=== PATIENT | male | born 1985 | race American Indian/Alaskan Native ===

== ENCOUNTER 2018-01-27 11:37 | Inpatient (IN) | payer MEDICAID ==
[2018-01-27] MEDS ORDERED: Sodium Chloride 0.9% 1,000 ML IV ONE (12:19)
[2018-01-27 12:59] LABS: BASO % 0.8 % (0.0-2.0); EOS # 0.1 K/uL (0.0-0.7); HEMOGLOBIN 15.1 g/dL (12.0-18.0); LYMPH # 0.9 K/uL (1.0-4.3); LYMPH % 31.1 % (20.0-40.0); MEAN CORPUSCULAR HEMOGLOBIN 30.3 pg (27.0-31.0); MEAN CORPUSCULAR HGB CONC 34.8 g/dL (33.0-37.0); MEAN PLATELET VOLUME 10.6 fL (7.2-11.7); MONO # 0.3 K/uL (0.0-0.8); MONO % 10.4 % (0.0-10.0); NEUT # 1.6 K/uL (1.8-7.0); NEUT % 55.7 % (50.0-75.0); NRBC % 0.2 % (0.0-2.0); RBC 4.97 Mil/uL (4.40-5.90); RED CELL DISTRIBUTION WIDTH 12.5 % (11.5-14.5); WHITE BLOOD COUNT 2.8 K/uL (4.8-10.8)
[2018-01-27 13:04] LABS: URINE BILIRUBIN NEGATIVE (NEGATIVE); URINE BLOOD NEGATIVE (NEGATIVE); URINE CLARITY Clear (Clear); URINE COLOR Yellow (YELLOW); URINE GLUCOSE (UA) NORMAL (Normal); URINE LEUKOCYTE ESTERASE NEG Leu/uL (Negative); URINE PROTEIN NEGATIVE (NEGATIVE); URINE UROBILINOGEN NORMAL mg/dL (0.2-1.0)
[2018-01-27 13:21] LABS: ALB/GLOB RATIO 1.5 (1.0-2.1); ALBUMIN 4.7 g/dL (3.5-5.0); ALT/SGPT 34 U/L (21-72); AST/SGOT 38 U/L (17-59); BLOOD UREA NITROGEN 11 mg/dL (9-20); CALCIUM 9.7 mg/dl (8.6-10.4); GFR NON-AFRICAN AMERICAN > 60
--- NOTE | 2018-01-27 14:01 | C.PDOC ---
History Of Present Illness 32 year old male presents to the ED for evaluation of left testicular pain and swelling for approx 3-4 months. Patient states he has been evaluated at [facility] multiple times and given three rounds of different anti biotics without improvement. Last week he was seen there, and he states his most recent bloodwork and ultrasound indicated that he "may have a tumor." Patient has not follow up with urologist yet, states the urologist is away and will return only in March. Patient denies trauma to the area, dys uria/hematuria, penile discharge, fever, abdominal pain. Time Seen by Provider: 01/27/18 12:07 Chief Complaint (Nursing): Male Genitourinary History Per: Patient History/Exam Limitations: no limitations Onset/Duration Of Symptoms: Other (3-4 months ) Current Symptoms Are (Timing): Still Present Severity: Moderate Quality Of Discomfort: "Pain" Associated Symptoms: denies: Fever, Chills, Nausea, Vomiting, Diarrhea, Urinary Symptoms Additional History Per: Patient Past Medical History Reviewed: Historical Data, Nursing Documentation, Vital Signs Vital Signs: Last Vital Signs Temp 98.2 F 01/27/18 12:03 Pulse 61 01/27/18 12:03 Resp 18 01/27/18 12:03 BP 175/105 H 01/27/18 12:03 Pulse Ox 98 01/27/18 12:03 - Medical History PMH: No Chronic Diseases Surgical History: No Surg Hx Family History: States: No Known Family Hx - Social History Hx Alcohol Use: No Hx Substance Use: No - Immunization History Hx Tetanus Toxoid Vaccination: No Hx Influenza Vaccination: No Hx Pneumococcal Vaccination: No Review Of Systems Constitutional: Negative for: Fever, Chills Cardiovascular: Negative for: Chest Pain Respiratory: Negative for: Shortness of Breath Gastrointestinal: Negative for: Nausea, Vomiting, Abdominal Pain, Diarrhea Genitourinary: Positive for: Other (left testicular pain and swelling ). Negative for: Dysuria, Hematuria, Penile Discharge Skin: Negative for: Rash Physical Exam - Physical Exam Appears: Well, Non-toxic, No Acute Distress Skin: Normal Color, Warm, Dry, No Rash Eye(s): bilateral: Normal Inspection Oral Mucosa: Moist Neck: Supple Cardiovascular: Rhythm Regular Respiratory: Normal Breath Sounds, No Rales, No Rhonchi, No Wheezing Gastrointestinal/Abdominal: Normal Exam, Bowel Sounds, Soft, No Tenderness Male Genital: Testicular Tenderness (left), Testicular Swelling (left), Other (significant left testicular swelling and diffuse TTP, no fluctuance or induration) Extremity: Normal ROM Neurological/Psych: Oriented x3 ED Course And Treatment - Laboratory Results Result Diagrams: 01/27/18 12:40 01/27/18 12:40 O2 Sat by Pulse Oximetry: 98 (on RA) Pulse Ox Interpretation: Normal - CT Scan/US testicular US Other Rad Studies (CT/US): Read By Radiologist, Radiology Report Reviewed CT/US Interpretation: Accession No. : [id number]. Patient Name / ID : FER PASCUAL / [id number]. Exam Date : 01/27/2018 12:57:39 ( Approved ). Study Comment : Sex / Age : M / 32Y. Creator : Silvana Downey V. Dictator : Silvana Downey V. Plasterer Maintenance : Bronze Plater : Silvana Downey V. Approver2 : Report Date : 01/27/2018 14:58:34. My Comment : . Date of service: 01/27/2018. HISTORY: LEFT TESTICULAR PAIN AND SWELLING. TECHNIQUE: Realtime sonography through the scrotum with color and doppler flow. COMPARISON: None Available. FINDINGS: RIGHT TESTICLE: Measures 4.1 x 2.7 x 2.7 cm. Normal echotexture and flow. RIGHT EPIDIDYMIS: Epididymal head measures 1.2 x 0.6 x 1.5 cm. Small right epididymal cyst 4 x 3 x 4 mm. Otherwise unremarkable in appearance with normal flow. LEFT TESTICLE: Measures 8.5 x 6.2 x 6.5 cm. Grossly abnormally heterogeneous in echotexture with multiple coalescing heterogeneous slightly hypoechoic intratesticular blending masses. One intratesticular mass solid in appearance measures 4.6 x 4.4 x 4.8 cm. Another mid testicular level mass has some minimal complex cystic foci within it GERD of it is also solid in appearance it measures 2.4 x 4.0 x 2.5 cm. An inferior testicular nearly isoechoic mass solid-appearing measures 2.3 x 3.6 x 3.4 cm. The masses have some increased vascularity associated with them. LEFT EPIDIDYMIS: The left epididymal head and body are not clearly identified.. HYDROCELE: Bilateral hydroceles left slightly larger than right. VARICOCELE: None. OTHER FINDINGS: IMPRESSION: Grossly abnormal appearing left testicle. Multiple intratesticular "masses" neoplastic and/or inflammatory are considerations. Neoplastic masses of the needed diagnosis of exclusion to be considered. Urological consult/follow-up is essential. There is flow to both testes there is also mild internal and mild moderate peripheral vascularity associated with the left intratesticular masses. No grossly contiguous inflamed left epididymis identified. However the left epididymis is not identified. Bilateral hydroceles left greater than right. Comments: Study marked for PA review . Progress Note: Bloodwork, urinalysis, testicular ultrasound ordered and reviewe d. Patient given Toradol IVP and IV NS bolus. Calls placed to Dr. Cedrick Gomes's cellphone at 15:15. Message left for callback. Additional calls placed to cellphone at 15:38 and 16:12. Call placed to Dr. Gomes's service at 15:45. Patient without PMD or private urologist, I am concerned about him being lost to follow up care. Has had symptoms for multiple months without resolution, and physical exam and testicular US are concerning for malignancy. Will admit for possible testicular cancer. 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 Consult for urology entered. Disposition - Disposition Disposition: HOSPITALIZED Disposition Time: 16:57 Condition: STABLE - Clinical Impression Clinical Impression: Testicular mass, Testicular swelling, left - Scribe Statement The provider has reviewed the documentation as recorded by the Scribe (Antonina Cline) Provider Attestation: All medical record entries made by the Scribe were at my direction and personally dictated by me. I have reviewed the chart and agree that the record accurately reflects my personal performance of the history, physical exam, medical decision making, and the department course for this patient. I have also personally directed, reviewed, and agree with the discharge instructions and disposition. Decision To Admit - Pt Status Changed To: Hospital Disposition Of: Inpatient - Admit Certification Admit to Inpatient:: After my assessment, the patient will require hospitalization for at least two midnights. This is because of the severity of symptoms shown, intensity of services needed, and/or the medical risk in this patient being treated as an outpatient. - InPatient: Physician Admission Certification: I certify that this patient requires 2 or more midnights of care for the following reason:: see notes - . Bed Request Type: Regular Admitting Physician: Rebeca Alvarado Patient Diagnosis: Testicular swelling, left, Testicular mass
[2018-01-27 14:03] VITALS: RESP 20
--- NOTE | 2018-01-27 15:02 | US ---
Date of service: 01/27/2018 HISTORY: LEFT TESTICULAR PAIN AND SWELLING TECHNIQUE: Realtime sonography through the scrotum with color and doppler flow. COMPARISON: None Available. FINDINGS: RIGHT TESTICLE: Measures 4.1 x 2.7 x 2.7 cm. Normal echotexture and flow. RIGHT EPIDIDYMIS: Epididymal head measures 1.2 x 0.6 x 1.5 cm. Small right epididymal cyst 4 x 3 x 4 mm. Otherwise unremarkable in appearance with normal flow. LEFT TESTICLE: Measures 8.5 x 6.2 x 6.5 cm. Grossly abnormally heterogeneous in echotexture with multiple coalescing heterogeneous slightly hypoechoic intratesticular blending masses. One intratesticular mass solid in appearance measures 4.6 x 4.4 x 4.8 cm. Another mid testicular level mass has some minimal complex cystic foci within it GERD of it is also solid in appearance it measures 2.4 x 4.0 x 2.5 cm. An inferior testicular nearly isoechoic mass solid-appearing measures 2.3 x 3.6 x 3.4 cm. The masses have some increased vascularity associated with them. LEFT EPIDIDYMIS: The left epididymal head and body are not clearly identified.. HYDROCELE: Bilateral hydroceles left slightly larger than right. VARICOCELE: None. OTHER FINDINGS: IMPRESSION: Grossly abnormal appearing left testicle. Multiple intratesticular "masses" neoplastic and/or inflammatory are considerations. Neoplastic masses of the needed diagnosis of exclusion to be considered. Urological consult/follow-up is essential. There is flow to both testes there is also mild internal and mild moderate peripheral vascularity associated with the left intratesticular masses. No grossly contiguous inflamed left epididymis identified. However the left epididymis is not identified. Bilateral hydroceles left greater than right. Comments: Study marked for PA review .
--- NOTE | 2018-01-28 09:29 | CP.PCM.PN ---
Subjective - Date & Time of Evaluation Date of Evaluation: 01/28/18 Time of Evaluation: 08:00 - Subjective Subjective: PGY3 Medicine progress note for Dr. Alvarado: Patient was seen and examined at bedside this morning. This is a 32 year old male who presented to the ED yesterday for evaluation of left testicular pain and swelling for approx 3-4 months. Patient states he has been evaluated at [facility] multiple times and given three rounds of different antibiotics without improvement. He denies fever/chills, discharge from the scrotum or penis, weight loss. Patient states he had an US done which showed a "tumor." He tried to follow up with urology but was told that the urologist was out of town until March. PMHx - none Meds - none NKDA Surg - denies Famhx - father with HTN and diabetes, hx of cancer in paternal side but unsure which kind Social - smokes about 4cigarettes daily, social alcohol use, denies drug use, not employed Objective - Vital Signs/Intake and Output Vital Signs (last 24 hours): Temp Pulse Resp BP Pulse Ox 97.6 F 60 20 158/94 H 96 01/28/18 07:49 01/28/18 07:49 01/28/18 07:49 01/28/18 07:49 01/28/18 07:49 Intake and Output: 01/28/18 01/28/18 06:59 18:59 Intake Total 600 Balance 600 - Medications Medications: Current Medications Amlodipine Besylate (Norvasc) 10 mg PO DAILY [place] Influenza Virus Vaccine (Fluzone Quad [id number]) 60 mcg IM .ONCE ONE Stop: 01/29/18 10:01 Pneumococcal Polyvalent Vaccine (Pneumovax 23 Vaccine) 0.5 ml IM .ONCE ONE Stop: 01/29/18 10:01 - Labs Labs: 01/27/18 12:40 01/27/18 12:40 - Constitutional Appears: Non-toxic, No Acute Distress - Head Exam Head Exam: ATRAUMATIC, NORMAL INSPECTION - Eye Exam Eye Exam: EOMI, Normal appearance, PERRL Pupil Exam: NORMAL ACCOMODATION - ENT Exam ENT Exam: Mucous Membranes Moist - Respiratory Exam Respiratory Exam: Clear to Ausculation Bilateral, NORMAL BREATHING PATTERN. absent: Accessory Muscle Use, Respiratory Distress - Cardiovascular Exam Cardiovascular Exam: REGULAR RHYTHM, +S1, +S2 - GI/Abdominal Exam GI & Abdominal Exam: Soft, Normal Bowel Sounds. absent: Distended, Firm, Guarding, Tenderness - Exam Exam: Scrotal Swelling, Testicular Tenderness. absent: Uretheral Discharge, Bladder Distension (no enlarged lymph nodes palpated in the groin, no lesions, left side of scrotum swollen, skin with mild edema, no discharge, mildly tender) - Neurological Exam Neurological Exam: Alert, Awake, CN II-XII Intact, Oriented x3 Neuro motor strength exam: Left Upper Extremity: 5, Right Upper Extremity: 5, Left Lower Extremity: 5, Right Lower Extremity: 5 - Psychiatric Exam Psychiatric exam: Normal Affect, Normal Mood - Skin Skin Exam: Intact, Normal Color Assessment and Plan - Assessment and Plan (Free Text) Assessment: Scrotal Mass and edema Dr. Cedrick Gomes, urology, consulted - help appreciated f/u CT ADB/pelvis f/y tumor markers: AFP, Hcg, LDH, Testicular US 01/27: Grossly abnoral left testicle. multiple intratesticular masses" neoplastic and/or inflammatory are considerations. There is flow to both testicles and mild to moderate peripheral vascularity associated with the left intratesticular mass. Left epididmyis is not identified. Bilateral hydroceles left greater than right. Failed outpatient antibiotic therapy: WBC normal, afebrile, no sing of infection Urine culture 01/27 - negative Hypertension could be secondary to pain, patient denies hx of HTN and was not on any medications at home Amlodipine 10mg PO daily Prophylactic Measures SCD, Heart healthy diet GI not indicated Patient is stable for discharge home. He is to follow up with a primary care doctor, or Dr. Alvarado for post hospital care and management of high blood pressure. Patient is to also follow up with Dr. Cedrick Gomes, urology, within one week of discharge. Patient is to take Amlodipine 10mg by mouth once a day for blood pressure control. All instructions explained to the patient and he agrees. Yumiko Martino, DO PGY3 (Case discussed with Dr. Alvarado. All management and order per Dr. Alvarado)
[2018-01-28 10:36] VITALS: BP 158/94; PULSE 60; TEMP 97.6
--- NOTE | 2018-01-28 11:15 | PCM.URO ---
Urology Progress Note - Subjective Abdominal Pain: Yes - Objective Lab Results Last 24 Hours: Laboratory Results - last 24 hr 01/27/18 01/27/18 01/27/18 12:19 12:40 12:40 WBC 2.8 L RBC 4.97 Hgb 15.1 Hct 43.2 MCV 87.0 MCH 30.3 MCHC 34.8 RDW 12.5 Plt Count 136 MPV 10.6 Neut % (Auto) 55.7 Lymph % (Auto) 31.1 [place] % (Auto) 10.4 H Eos % (Auto) 2.0 Baso % (Auto) 0.8 Neut # (Auto) 1.6 L Lymph # (Auto) 0.9 L [place] # (Auto) 0.3 Eos # (Auto) 0.1 Baso # (Auto) 0.0 Sodium 142 Potassium 3.9 Chloride 102 Carbon Dioxide 29 Anion Gap 14 BUN 11 Creatinine 1.0 Est GFR ( Amer) > 60 Est GFR (Non-Af Amer) > 60 Random Glucose 87 Calcium 9.7 Total Bilirubin 1.2 AST 38 ALT 34 Alkaline Phosphatase 55 Total Protein 7.7 Albumin 4.7 Globulin 3.1 Albumin/Globulin Ratio 1.5 Urine Color Yellow Urine Clarity Clear Urine pH 5.0 Ur Specific [place] 1.020 Urine Protein Negative Urine Glucose (UA) Normal Urine Ketones Negative Urine Blood Negative Urine Nitrate Negative Urine Bilirubin Negative Urine Urobilinogen Normal Ur Leukocyte Esterase Neg Urine WBC (Auto) 1 Urine RBC (Auto) < 1 Intake & Output: Intake & Output 01/27/18 01/28/18 01/28/18 18:59 06:59 18:59 Intake Total 600 Balance 600 Weight 185 lb Intake: Oral 600 Other: # Voids Urine, Voided 2 Vital Signs: Vital Signs - 24 hr 01/27/18 01/27/18 01/27/18 12:03 14:02 17:36 Temperature 98.2 F 98.8 F 98.0 F Pulse Rate 61 61 72 Respiratory 18 20 Rate Blood Pressure 175/105 H 164/100 H 176/105 H O2 Sat by Pulse 98 98 100 Oximetry 01/27/18 01/27/18 01/27/18 18:24 19:01 19:40 Temperature 98.3 F Pulse Rate 62 62 Respiratory 20 Rate Blood Pressure 174/105 H 169/106 H O2 Sat by Pulse 100 98 Oximetry 01/27/18 01/28/18 01/28/18 21:20 00:08 07:49 Temperature 98 F 97.6 F Pulse Rate 66 68 60 Respiratory 18 20 Rate Blood Pressure 164/92 H 154/100 H 158/94 H O2 Sat by Pulse 99 96 Oximetry - Plan Ambulation - Out of Bed: Yes (pt can be discharged home and managed as an out pt )
[2018-01-28] MEDS ORDERED: Iodixanol 320 MG/ML 100 ML BOTTLE IV ONE (11:55)
--- NOTE | 2018-01-28 13:31 | CT ---
Date of service: 01/28/2018 PROCEDURE: CT Abdomen and Pelvis with contrast HISTORY: testicular mass/ r/o adenopathy please go all the COMPARISON: None available. TECHNIQUE: Contrast dose: 100 cc Visipaque 320 Radiation dose: Total exam DLP = 465.82 mGy-cm. This CT exam was performed using one or more of the following dose reduction techniques: Automated exposure control, adjustment of the mA and/or kV according to patient size, and/or use of iterative reconstruction technique. FINDINGS: Examination limited by paucity of intra-abdominal and intrapelvic fat. LOWER THORAX: No visible consolidation, pleural effusion, or pneumothorax. LIVER: Indeterminate 10 mm hypodense lesion within the posterior right hepatic lobe (series 3, image 33). GALLBLADDER AND BILE DUCTS: Unremarkable. PANCREAS: Unremarkable. SPLEEN: Unremarkable. ADRENALS: Unremarkable. KIDNEYS AND URETERS: The kidneys enhance symmetrically. No hydronephrosis or obstructing calculus identified. Too small to characterize right renal hypodensity; statistically likely cyst. VASCULATURE: No aortic aneurysm. No atherosclerotic calcification or mural plaque present. BOWEL: Stomach is nondistended. Lack of oral contrast limits evaluation for bowel pathology. Bowel loops appear within normal limits of caliber without evidence of obstruction. APPENDIX: The appendix appears within normal limits of caliber. No secondary signs of acute appendicitis. PERITONEUM: No significant free fluid. No definite free air. LYMPH NODES: Sub cm mesenteric and retroperitoneal lymph nodes, nonspecific. BLADDER: Unremarkable. REPRODUCTIVE: Incidental note is made of abnormal heterogeneous appearance of the left testicle. Please refer to testicular ultrasound performed 01/27/18 for detailed discussion. BONES: No acute osseous abnormality is detected. OTHER FINDINGS: None. IMPRESSION: Indeterminate 10 mm hypodense mass within the posterior right hepatic lobe. Recommend ultrasound and or dedicated liver CT if indicated. Incidental note is made of abnormal heterogeneous appearance of the left testicle. Please refer to testicular ultrasound performed 01/27/18 for detailed discussion of abnormal findings. Additional findings as above.
--- NOTE | 2018-01-29 08:47 | CON ---
DATE: 01/28/2018 UROLOGY CONSULTATION REASON FOR CONSULTATION: I was asked to see the patient for his scrotal discomfort. HISTORY OF PRESENT ILLNESS: A very pleasant 32-year-old gentleman since 10/2017, he has been having some discomfort in his scrotum and he noticed a mass. No history of trauma. On further questioning, he revealed that it is more recent than that, that makes more sense. He has no history of trauma. He has two children, but he does not recall anybody including a 6-month-old, he does not recall any injury. He has no urinary complaints, dysuria, or urgency. He has no constitutional complaints, weight loss, chest pain, shortness of breath, night sweats, etc. He has discomfort in his scrotum. He initially went to the emergency room at [facility]. They recommended that he follow up with urologist who subsequently was not able to see the patient until 03/2018. He then came to the [facility] and was admitted. PAST MEDICAL HISTORY AND SURGICAL HISTORY: As listed on the chart. No history of an NM or CVA, or any disease. SOCIAL HISTORY: He has a girlfriend who has 2 kids. He worked in the [employer] in [place]. REVIEW OF SYSTEMS: No constitutional complaints, weight loss, chest pain, shortness of breath, night sweats, etc. PHYSICAL EXAMINATION: GENERAL: A well-nourished male, in no apparent distress. VITAL SIGNS: Normal. NECK: No obvious adenopathy detected. He has no cervical or axillary lymphadenopathy. LUNGS: Clear. HEART: S1 and S2. ABDOMEN: Overall soft, nontender. GENITALIA: He has a normal male phallus. Left hemiscrotum is large. It is dilated. I am unable to tell that it transilluminates or not after inside his left hemiscrotum. The wall is within normal limits. There is no thick masses to the wall. It is large. The remainder of the contralateral side is within normal limits. RECTAL: Exam is deferred. There are no other appreciable abnormalities throughout the chart. DIAGNOSIS: Scrotal mass. ASSESSMENT AND PLAN: So the differential diagnoses including the possibility for an underlying testicular cancer, malignancy needs to be entertained heavily. The other possibility is a large hydrocele. I explained this in detail to the patient and explained different surgical approaches from our end. We will report this and I need to check the ultrasound report. If there is a solid mass, we will consider outpatient surgical resection. From Urology standpoint, he is stable, he is interested in going home. I explained to him the importance of followup, the importance of ____, but from urology standpoint, he is stable and clear for discharge home. He has provided me his cell number. I spoke to him directly in the room on his cell phone to make sure I am able to reach him. It does not appear that he will get assistance. The plan will be as follows. is as follows. We recommend a CT scan and with some labs. See him in the office including alpha-fetoprotein, etc., and then we will recommend surgical removal, but this cannot be scheduled as an as needed basis. In the event that it is hydrocele, if the patient is very uncomfortable, we will recommend the possibility for . 1. Check the ultrasound report. 2. If possible, more imaging. 3. If possible, more labs in the office. Make further plans. We will follow. Juliocesar Gomes MD
[2018-01-29] MEDS ORDERED: Pneumococcal 23-Valent Vaccine IM ONE (10:00)
[2018-01-29] MEDS ORDERED: Influenza Vaccine 60 MCG/0.5 ML SYR (3 yr & up) IM ONE (10:00)
[2018-02-05 12:26] VITALS: O2SAT 98
== END 2018-01-28 14:40 | disposition home or self-care (01) | DRG 501 ==
LOC: C.ER 11:37 → C.9E 16:57 → C.3T 17:22
PROVIDERS: ADMIT Internal Medicine Pulmonary Disease; ATTEND Internal Medicine Pulmonary Disease
DX: N50.812 Left testicular pain (principal); I10 Essential (primary) hypertension; N43.3 Hydrocele, unspecified

== ENCOUNTER 2018-02-03 12:35 | Day surgery (SDC) | payer MEDICAID ==
[2018-02-03 12:55] VITALS: O2SAT 100
--- NOTE | 2018-02-03 13:07 | C.PDOC ---
History Of Present Illness 32yo male, with history of hypertension, comes to ER for evaluation of left testicular pain and swelling. Patient states the pain and swelling has been present x 3 months and states the pain has been worsening. Patient was evaluated by Dr. Gomes, concern for possible cancer, and was sent to ER for further evaluation and probable procedure. Patient reports he last ate and drank water last night; he has had no PO intake today. PMD: At [facility] Urologist: Dr. Gomes Time Seen by Provider: 02/03/18 13:02 Chief Complaint (Nursing): Medical Clearance History Per: Patient History/Exam Limitations: no limitations Onset/Duration Of Symptoms: Persistent Current Symptoms Are (Timing): Still Present Past Medical History Reviewed: Historical Data, Nursing Documentation, Vital Signs Vital Signs: Last Vital Signs Temp 98.8 F 02/03/18 12:52 Pulse 62 02/03/18 12:52 Resp 18 02/03/18 12:52 BP 131/95 H 02/03/18 12:52 Pulse Ox 100 02/03/18 12:52 - Medical History PMH: HTN Surgical History: No Surg Hx Family History: States: Unknown Family Hx - Social History Hx Alcohol Use: Yes (occasional drinker) Hx Substance Use: No - Immunization History Hx Tetanus Toxoid Vaccination: No Hx Influenza Vaccination: No Hx Pneumococcal Vaccination: No Review Of Systems Except As Marked, All Systems Reviewed And Found Negative. (as per HPI) Genitourinary: Positive for: Other (left testicular pain and swelling) Physical Exam - Physical Exam Appears: Non-toxic, No Acute Distress Skin: Normal Color, Warm, Dry Head: Atraumatic, Normacephalic Eye(s): bilateral: Normal Inspection Neck: Normal ROM, Supple Chest: Symmetrical Cardiovascular: Rhythm Regular Respiratory: Normal Breath Sounds Gastrointestinal/Abdominal: Normal Exam, Soft Male Genital: Other (deferred) Extremity: Normal ROM Neurological/Psych: Oriented x3 ED Course And Treatment O2 Sat by Pulse Oximetry: 100 (RA) Pulse Ox Interpretation: Normal Medical Decision Making Medical Decision Making: Impression: 32yo male with left testicular swelling and pain Plan: * Labs * CXR * IV Fluids [address] Gomes who states patient to be admitted under his service. Disposition - Disposition Forms: [employer] ([place]) - Scribe Statement The provider has reviewed the documentation as recorded by the Scribe Mar Ashley Provider Attestation: All medical record entries made by the Angel were at my direction and personally dictated by me. I have reviewed the chart and agree that the record accurately reflects my personal performance of the history, physical exam, medical decision making, and the department course for this patient. I have also personally directed, reviewed, and agree with the discharge instructions and disposition.
[2018-02-03] MEDS ORDERED: Sodium Chloride 0.9% 1,000 ML IV SCH (13:15)
[2018-02-03 13:43] LABS: BASO % 0.6 % (0.0-2.0); EOS # 0.1 K/uL (0.0-0.7); EOS % 2.3 % (0.0-4.0); HEMOGLOBIN 15.1 g/dL (12.0-18.0); LYMPH # 0.8 K/uL (1.0-4.3); LYMPH % 32.5 % (20.0-40.0); MEAN CELL VOLUME 87.5 fL (80.0-94.0); MEAN CORPUSCULAR HEMOGLOBIN 30.1 pg (27.0-31.0); MEAN CORPUSCULAR HGB CONC 34.4 g/dL (33.0-37.0); MEAN PLATELET VOLUME 10.7 fL (7.2-11.7); MONO # 0.2 K/uL (0.0-0.8); MONO % 9.7 % (0.0-10.0); NEUT # 1.3 K/uL (1.8-7.0); NEUT % 54.9 % (50.0-75.0); NRBC % 0.2 % (0.0-2.0); RBC 5.01 Mil/uL (4.40-5.90); RED CELL DISTRIBUTION WIDTH 12.8 % (11.5-14.5); WHITE BLOOD COUNT 2.5 K/uL (4.8-10.8)
[2018-02-03 13:50] LABS: INR 1.1; PROTHROMBIN TIME 11.6 SECONDS (9.7-12.2)
--- NOTE | 2018-02-03 13:53 | RAD ---
HISTORY: SOB COMPARISON: No prior. TECHNIQUE: Chest PA and lateral FINDINGS: LUNGS: No focal consolidation. Please note that chest x-ray has limited sensitivity for the detection of pulmonary masses. PLEURA: No significant pleural effusion identified. No definite pneumothorax . CARDIOVASCULAR: The cardiomediastinal silhouette appears within normal limits of size. No atherosclerotic calcification present. OSSEOUS STRUCTURES: No acute osseous abnormality identified. VISUALIZED UPPER ABDOMEN: Unremarkable. OTHER FINDINGS: None. IMPRESSION: No focal consolidation identified.
[2018-02-03 14:01] LABS: ALB/GLOB RATIO 1.4 (1.0-2.1); ALT/SGPT 35 U/L (21-72); AST/SGOT 39 U/L (17-59); BLOOD UREA NITROGEN 13 mg/dL (9-20); CALCIUM 9.9 mg/dl (8.6-10.4); GFR NON-AFRICAN AMERICAN > 60
[2018-02-03] MEDS ORDERED: Propofol 10 mg/ml Inj (20 ML) ONE ×2 (17:28→17:57)
[2018-02-03] MEDS ORDERED: Midazolam 2 MG/2 ML VIAL ONE (17:28)
[2018-02-03] MEDS ORDERED: ceFAZolin 1 gm in NS 2 GM/200 ML BAG IVPB ONE (17:34)
[2018-02-03] MEDS: Bupivacaine 0.25% 20 ML INJ IJ ONE ×2 (17:46→18:38)
[2018-02-03] MEDS ORDERED: HYDROmorphone 0.5 mg/0.5 ml ISec IVP PRN ×2 (18:34→19:24)
[2018-02-03] MEDS ORDERED: Bupivacaine 0.25% 20 ML INJ IJ ONE (18:36)
[2018-02-03] MEDS ORDERED: Oxycodone/Acetaminophen 5/325 mg Tab PO PRN (19:08)
[2018-02-03 19:48] VITALS: RESP 12
[2018-02-03 20:59] VITALS: BP 134/85; PULSE 70; TEMP 98.1
--- NOTE | 2018-02-04 04:59 | HP ---
REASON FOR ADMISSION: Treatment of testicular mass. HISTORY OF PRESENT ILLNESS: Very pleasant gentleman who I just met last week, this has been going for a while. He has actually been in another hospital or two. Difficult to assess the exact timing for this but it has been going on for a while that he has a mass in his left testicle. The question is whether it was fluid or mass. When we saw the patient where he had an ultrasound, it showed multiple abnormalities within his testicle. There are also may be a small component of hydrocele. At that time when we met the patient, we ordered tumor markers and a CT scan, and the mass has further delineated. There is no evidence of adenopathy. No retroperitoneal adenopathy appreciated well. The tumor markers are slightly elevated. The LDH is elevated. I think his hCG is elevated, have to check further details. We have discussed options with the patient. My recommendation is for orchiectomy at this point. I did discuss with the patient the right side being normal. The patient has no history of undescended testicle. We discussed sperm banking. We discussed options available including surgery including exploration and frozen section. After discussing various options and recommendation from me, we discussed the patient's options at length with the patient's girlfriend in the office. After meeting the patient initially in the hospital and then having him come to the office immediately, we made immediate arrangement for a left inguinal exploration and a left radical orchiectomy. Past medical and surgical history is, essentially, negative. Otherwise, healthy gentleman. REVIEW OF SYSTEMS: No weight loss, chest pain, shortness of breath, night sweats, or the like. No history of trauma to the testicles. No history of travel. No other suggestions for tuberculosis coming. PHYSICAL EXAMINATION: GENERAL: No apparent distress. VITAL SIGNS: Within normal limits, included in the chart. LUNGS: Clear. HEART: S1 and S2. ABDOMEN: Overall soft. Nontender. No flank tenderness appreciated. He has no cervical adenopathy. No axillary lymphadenopathy. Right side has normal right hemiscrotum and right testicle. Left hemiscrotum is grossly enlarged with testicle noted. I do want to mention the lab values. His HCG is 7.51. His alpha fetoprotein is 12.4. The LDH is noted as I mentioned, 490. I do want to also mention the remainder of the labs, BUN, creatinine, and CBC are all within relatively normal limits. His white count is only 2.8, and a repeat white count today is 2.5 (we need to address this as well). CT scan is noted. No adenopathy. The testicular ultrasound, again we have had a chance to review again. There is what appears to be an intratesticular mass, solid in appearance. The diagnosis is a left intratesticular mass with no obvious metastatic disease. We have discussed the options that he is here for a radical orchiectomy. We are going to do an inguinal exploration and radical orchiectomy. I have discussed the patient's risks and benefits. I have discussed alternatives. I have discussed observations. I discussed blood type . I have discussed many many things. I discussed the risk of nerve damage. I discussed the risk of spread of tumors. I discussed the risk of coming, discussed the risk of hernia formation. After discussing all these options, we are going to proceed. Further plan is as follows. 1. Antibiotic prophylaxis. 2. Inguinal exploration. 3. Orchiectomy, and then for further plans and option, see the operative note. Juliocesar Gomes MD
--- NOTE | 2018-02-04 10:28 | OP ---
PROCEDURE DATE: 02/03/2018 PREOPERATIVE DIAGNOSIS: Left intratesticular mass, suspicious for malignancy. POSTOPERATIVE DIAGNOSIS: Left intratesticular mass, suspicious for malignancy. PROCEDURE: Left inguinal exploration and incision and a left radical orchiectomy. SURGEON: Juliocesar Gomes MD COMPLICATIONS: There were no complications. ESTIMATED BLOOD LOSS: Less than 10 mL. SPECIMEN: Left testicle and the left cord up to as high as we can get through. INDICATIONS FOR THE PROCEDURE: See history and physical for the detail. A very pleasant gentleman who presented a while ago with left intratesticular mass of various reasons. We did meet the patient until last , and he is now here today for the above listed procedure. I met the patient in the hospital. We already did a scrotal ultrasound. See the admission history and physical for further details. We then did a CT scan. We did labs. LDH is noted to be elevated. Other tumor markers, beta HCG, and alpha fetoprotein are noted. We discussed the options. The patient has no obvious adenopathy. He is here now for the above listed procedure. I do want to mention it is a fairly large tumor. With difficulty we were able to without any rupture and without spilling any tumor cells, we were able to eliminate the testicle. DESCRIPTION OF PROCEDURE: After obtaining informed consent, the patient was placed on table. Routine monitors were placed. Time-out was called to confirm the patient and positioning. We gave the patient antibiotic prophylaxis. We made horizontal incision. We marked our incision. We felt the pubic tubercle. We felt the external ring. We made incision to the underlying skin and subcutaneous fascia, trying to avoid the inguinal nerve. We controlled any bleeding in the skin site. At this point, we identified our sternal oblique and incised below layer by layer. Now we identified the cord, and we were able to deliver the cord, and we have made decision that our plan was for an orchiectomy, not for any frozen sections. I discussed various options with the patient. We then proceeded. Therefore, we put a Katelyn around the cord before we started the manipulation just to present tumor cells . We then tried to deliver the testicle through, but it was a fairly large testicle. We dissected slowly, carefully, meticulously until we were able to free up the testicle and deliver it. We had extended our incision a little bit. We were able to deliver and free off the scrotal wall. We now inspected the scrotal wall for any bleeding sites. There is no bleeding, and we have not ruptured the scrotum. The skin is grossly intact. We . At this point, we inspected more closely the testicle and it feels like a solid intratesticular mass. I do not open on the field. We will just keep the Katelyn around if that is possible. We now traced up the cord and tie up into the canals we can get. I do want to mention at this point, I also provided for local anesthetic afterwards. We used a three-clamp technique to divide the testicle and the cord contents. As we are doing it, we are also tying off little smaller vessels. We used the silk that we leave with a long tail, 0 Silk with a long tail so in case, we will need to come out for no dissection for the future. We also used the following. We used #0 and #1 silk and we also used suture ligature to make sure they have a good secure solid nonbleeding stump. We inspected very carefully. It looks terrific. There is no bleeding noted. We irrigated the wound. I now looked back at the scrotal wall. I everted into the field. I inspected very carefully. There is really no bleeding, any little slightest blood vessel we cauterized very carefully. The skin is grossly intact, and there is no bleeding. We irrigated the wound copiously and we begin our closure. We returned to floor of the shelving edges. Gently, carefully it actually comes back very nicely. We used Vicryl, closing layers. We then injected subcutaneously little more marking to the wound. anesthesia. We reapproximated, and we closed the skin with isaac prior to dry sterile dressing. We then put a scrotal support with some fluffy dressing in the scrotum. We will do extra pressure dressing. The patient tolerated the procedure without complications. Juliocesar Gomes MD
--- NOTE | 2018-02-04 11:13 | CARD ---
APPROVED REPORT Date of service: 02/03/2018 EKG Measurement Heart [id number] <Conclusion> Normal sinus rhythm ST elevation, probably due to early repolarization Borderline ECG
== END 2018-02-03 20:40 | disposition home or self-care (01) ==
LOC: C.ER 12:35 → C.SDS 13:33
PROVIDERS: ATTEND Urology
DX: N50.9 Disorder of male genital organs, unspecified (principal); I10 Essential (primary) hypertension
CPT/HCPCS: 36415; 54530; 71046; 80053; 85025; 85610; 85730; 86850; 86900; J0690; J1170; J2250; J2405; J2704; J3010; J7030